=== PATIENT | male | born 1955 | race Caucasian/White ===

== ENCOUNTER 2024-03-09 06:56 | Day surgery (SDC) | payer MEDICARE, BC, SELFPAY ==
[2024-03-07 14:45] VITALS: BMI 23.6
--- NOTE | 2024-03-08 07:00 | EKG_ITS ---
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
[2024-03-08 11:20] LABS: Basophils # (Auto) 0.1 Thou/mm3 (0.0-0.2); Basophils % (Auto) 1 % (0-2.5); Eosinophils # (Auto) 0.3 Thou/mm3 (0.0-0.5); Eosinophils % (Auto) 3 % (0-10); Hematocrit 46.2 % (41.0-53.0); Hemoglobin 15.3 g/dL (13.5-16.0); Immature Granulocytes % (Auto) 1 % (0-0); Immature Granulocytes Auto 0.04 Thou/mm3 (0.00-0.00); Lymphocytes % (Auto) 35 % (10-50); Mean Corpuscular HGB Conc 33.1 g/dl (31.0-37.0); Mean Corpuscular Hemoglobin 31.4 pg (25.0-35.0); Mean Corpuscular Volume 95 fL (80-100); Monocytes # (Auto) 0.8 Thou/mm3 (0.0-0.8); Monocytes % (Auto) 9 % (0-12); Neutrophils # (Auto) 4.4 Thou/mm3 (1.8-7.7); Neutrophils % (Auto) 51 % (37-80); Nucleated Red Blood Cell % 0 /100 WBC (0); Platelet Count 233 Thou/mm3 (140-440); RDW Standard Deviation 52.7 fL (35.1-43.9); Red Blood Count 4.87 Miln/mm3 (4.50-5.90); White Blood Count 8.5 Thou/mm3 (3.8-10.6)
[2024-03-08 11:28] LABS: Partial Thromboplastin Time 26.5 Seconds (22.0-36.0); Prothrombin Time 11.4 Seconds (9.0-12.2)
[2024-03-08 11:37] LABS: Anion Gap 7 (7-16); BUN/Creatinine Ratio 19 Ratio (12-20); Blood Urea Nitrogen 28 mg/dL (9-23); Carbon Dioxide 23.1 mMol/L (20.0-31.0); Chloride 108 mMol/L (98-107); Creatinine (Component) 1.5 mg/dL (0.6-1.3); Estimated Creatinine Clearance 48.4 mL/min (>60); Glucose 105 mg/dL (74-106); Osmolality,Calculated 281 (275-295); Potassium 5.1 mMol/L (3.4-5.1); Sodium 138 mMol/L (136-145); eGFR 51 See Note
[2024-03-09] VITALS (16 sets, daily range): BP systolic 71–154; BP diastolic 52–91; PULSE 64–71; RESP 12–20; TEMP 36.6–36.8; O2SAT 97–100; BMI 24.2
--- NOTE | 2024-03-09 07:30 | CHAP ---
Patient expressed gratitude for prayer before his procedure.
--- NOTE | 2024-03-09 10:05 | ESOP_ITS ---
RE: JUSTUS ROCKWELL : 1955 DATE OF OPERATION: 03/09/2024 PROCEDURE PERFORMED: 1. Selective catheter placement in the aortic arch and aortic arch angiogram, CPT code 29573. 2. Selective catheterization of the right common carotid artery; right carotid and cerebral angiogram, CPT code 90020. 3. Selective catheter placement of the left common carotid artery; left carotid and cerebral angiogram. 4. Selective cannulation of left subclavian artery and left subclavian angiogram. 5. Iliofemoral angiogram. 6. Conscious sedation 30 minute duration. 7. Ultrasound-guided access, left femoral artery. DIAGNOSES: Subclavian stenosis and severe 90% stenosis of left internal carotid artery. HISTORY AND INDICATIONS: The patient is a 68-year-old male with a past medical history of coronary artery disease, status post myocardial infarction, stent placement, peripheral arterial disease, admitted recently to the hospital symptomatic subclavian stenosis, also was found to have left internal carotid artery stenosis _ 90% stenosis with 2.7 meter velocities, hence carotid and cerebral angiograms as well as left subclavian angiogram was recommended for further assessment to assess if he is a candidate for carotid intervention and subclavian intervention. DESCRIPTION OF PROCEDURE: The patient was brought to cardiac catheterization laboratory. He was given conscious sedation 1 mg Versed and 50 mcg of fentanyl for sedation. Left femoral artery was cannulated by ultrasound guidance and _ micropuncture technique was used and local anesthesia. A 5-Indonesian sheath was introduced. A 5-Indonesian pigtail catheter was advanced to the aortic arch. Aortic arch angiogram performed by digital subtraction angiogram. Subsequently, a Sutton 2, 5-Indonesian diagnostic catheters to cannulate the right common carotid artery, carotid and cerebral angiogram was performed. Left Sutton 2 diagnostic catheter was used to cannulate left common carotid artery, carotid and cerebral angiogram was performed. Subsequently, a Sutton 2 diagnostic catheter was used to cannulate the left subclavian artery, left subclavian angiogram was performed. Subsequently, iliofemoral angiogram performed and manual compression applied. The patient tolerated the procedure well. There were no complications. Aortic arch showed following findings. Aortic arch angiogram showed type B aortic arch. Calcification of the aortic arch with mild atherosclerotic plaque. No significant stenosis. Right innominate artery is normal. Right subclavian artery is normal. Right vertebral artery is normal. Origin of the common carotid artery is normal. Left common carotid artery is normal. Left subclavian artery showed severe stenosis. Selective carotid angiogram showed following findings. Right common carotid artery showed mild plaque, no significant stenosis. Right internal carotid artery is normal. Intracerebral angiogram showed right anterior middle cerebral artery is normal. No aneurysms or AV malformation. Left common carotid artery showed mild plaque, no significant stenosis. Left internal carotid artery showed 90% stenosis close to the bifurcation . Left external carotid artery showed moderate stenosis. Left anterior middle cerebral arteries appeared normal. Left subclavian artery showed evidence of a 75-80% stenosis, discrete 2 cm lesion. Subsequently, there is moderate disease distally as well. Left internal mammary artery and left vertebral arteries appeared normal. SUMMARY OF FINDINGS: 1. A 90% stenosis of left internal carotid artery, fairly high bifurcation. 2. Moderate to severe 80% stenosis, left subclavian artery. RECOMMENDATIONS: Continue medical management. We will discuss with vascular surgery consultation, possibly carotid stent placement versus endarterectomy because of high bifurcation he is a candidate for stent placement and also subclavian artery can be addressed later stent placement. The patient appears to be symptomatic and has subclavian steal syndrome. DT: 08:44:34 TT: 09:49:00 Ref: [id number] - TID: [id number] [facility]
--- NOTE | 2024-03-09 10:21 | PC.NURSE ---
0839 patient is awake, alert, breathing unlabored, s/p carotid angiogram via left groin, femoral sheat present to left groin, no bleeding or hematoma noted, ok to remove sheath now per RN Report. Report received from Kwasi MEYER, patient to recover for 4 hrs and continue home medications aspirin and plavix today. NIH stroke assessment completed, no s/s of stroke at this time. 0907 left femoral sheath removed, no bleeding or hematoma noted, manual pressure applied. 0922 manual pressure removed, no active bleeding or hematoma noted, sandbag applied. Pt refuse food tray at this time 1015 patient eating breakfast, no nausea or vomiting.
--- NOTE | 2024-03-09 11:15 | PC.NURSE ---
1115 sandbag removed from left groin, no bleeding or hematoma noted
--- NOTE | 2024-03-09 12:17 | PC.NURSE ---
patient is awake, alert, breathing unlabored, no bleeding or hematoma to left groin, vital signs stable, no signs of stroke at this time, Dr. Blum states ok to sit up patient and get patient ready to go home
--- NOTE | 2024-03-09 13:50 | PC.NURSE ---
1257 patient is awake, alert, breathing unlabored, dressing to left groin dry with no bleeding or hematoma, discharge instructions given to patient and , patient discharged home in wheelchair with all belongings. No s/s of stroke at this time.
== END 2024-03-09 12:57 | disposition home or self-care (01) ==
PROVIDERS: PCP Nurse Practitioner Family; Referring Provider Internal Medicine Cardiovascular Disease; Visit Provider Internal Medicine Cardiovascular Disease
PROC: (CPT 36224; principal; 2024-03-09 07:30)
DX: I65.22 Occlusion and stenosis of left carotid artery (principal); Z95.5 Presence of coronary angioplasty implant and graft; I70.8 Atherosclerosis of other arteries; I25.10 Atherosclerotic heart disease of native coronary artery without angina pectoris; I25.2 Old myocardial infarction; I73.9 Peripheral vascular disease, unspecified
CPT/HCPCS: 36200; 36223; G0278; 36415; 75625; 75710; 75820; 80048; 82810; 85025; 85347; 85610; 85730; 93005; 99152; 99153; A4649; C1751; C1769; C1894; J0171; J0461; J1643; J2250; J2310; J2371; J3010; J3490; Q9967; J1644; J2305

== ENCOUNTER → 2024-06-20 | Outpatient (CLI) | payer MEDICARE, BC, SELFPAY ==
[2024-06-20 12:54] LABS: Basophils # (Auto) 0.1 Thou/mm3 (0.0-0.2); Basophils % (Auto) 1 % (0-2.5); Eosinophils # (Auto) 0.2 Thou/mm3 (0.0-0.5); Eosinophils % (Auto) 2 % (0-10); Hematocrit 46.8 % (41.0-53.0); Hemoglobin 15.1 g/dL (13.5-16.0); Immature Granulocytes % (Auto) 0 % (0-0); Immature Granulocytes Auto 0.02 Thou/mm3 (0.00-0.00); Lymphocytes # (Auto) 3.5 Thou/mm3 (1.0-4.8); Lymphocytes % (Auto) 35 % (10-50); Mean Corpuscular HGB Conc 32.3 g/dl (31.0-37.0); Mean Corpuscular Hemoglobin 29.7 pg (25.0-35.0); Mean Corpuscular Volume 92 fL (80-100); Monocytes # (Auto) 0.7 Thou/mm3 (0.0-0.8); Monocytes % (Auto) 7 % (0-12); Neutrophils # (Auto) 5.5 Thou/mm3 (1.8-7.7); Neutrophils % (Auto) 55 % (37-80); Nucleated Red Blood Cell % 0 /100 WBC (0); Platelet Count 320 Thou/mm3 (140-440); RDW Standard Deviation 50.1 fL (35.1-43.9); Red Blood Count 5.08 Miln/mm3 (4.50-5.90)
[2024-06-20 13:02] LABS: INR 1.1 (0.9-1.3); Partial Thromboplastin Time 37.8 Seconds (22.0-36.0); Prothrombin Time 11.9 Seconds (9.0-12.2)
[2024-06-20 13:05] LABS: Alanine Aminotransferase 33 U/L (10-49); Albumin, Serum 4.5 gm/dL (3.4-4.8); Albumin/Globulin Ratio 1.7 (1.2-2.2); Alkaline Phosphatase 90 U/L (46-116); Anion Gap 9 (7-16); Aspartate Amino Transferase 16 U/L (0-34); BUN/Creatinine Ratio 18 Ratio (12-20); Bilirubin,Total 0.4 mg/dL (0.3-1.2); Blood Urea Nitrogen 24 mg/dL (9-23); Calcium 10.2 mg/dL (8.3-10.6); Calcium (Corrected) 10.2 mg/dL (8.5-10.1); Carbon Dioxide 24.7 mMol/L (20.0-31.0); Chloride 107 mMol/L (98-107); Creatinine (Component) 1.3 mg/dL (0.6-1.3); Globulin 2.7 gm/dL (2.3-3.5); Glucose 102 mg/dL (74-106); Osmolality,Calculated 285 (275-295); Sodium 141 mMol/L (136-145); Total Protein 7.2 gm/dL (5.7-8.2); eGFR > 60 See Note
== END | disposition home or self-care (01) ==
LOC: COPL 11:44
PROVIDERS: PCP Nurse Practitioner Family; Referring Provider Nurse Practitioner Family; Visit Provider Nurse Practitioner Family
DX: I50.9 Heart failure, unspecified (principal)
CPT/HCPCS: 36415; 80053; 85025; 85610; 85730

== ENCOUNTER → 2024-07-23 | Outpatient (CLI) | payer MEDICARE, BC, SELFPAY ==
[2024-07-23 14:33] LABS: Prostate Specific Antigen 1.75 ng/mL (0-4.00)
[2024-07-23 14:38] LABS: Cardiac Risk Estimate 3.8 RATIO (4.0-6.7); Cholesterol 139 mg/dL (132-200); HDL Cholesterol 37 mg/dL (40-60); LDL Cholesterol,Calculated 76 mg/dL (0-130); Thyroid Stimulating Hormone 2.09 uIU/mL (0.55-4.78); Triglycerides 128 mg/dL (30-150)
== END | disposition home or self-care (01) ==
LOC: COPL 13:19
PROVIDERS: PCP Nurse Practitioner Family; Referring Provider Nurse Practitioner Family; Visit Provider Nurse Practitioner Family
DX: E03.9 Hypothyroidism, unspecified (principal); E78.2 Mixed hyperlipidemia; N52.9 Male erectile dysfunction, unspecified
CPT/HCPCS: 36415; 80061; 84153; 84443

== ENCOUNTER → 2024-07-25 | Outpatient (CLI) | payer MEDICARE, BC, SELFPAY ==
[2024-07-30 06:48] LABS: Fecal Globin Result DETECTED (NOT DETECTED)
== END | disposition home or self-care (01) ==
LOC: SLDO 13:23
PROVIDERS: Referring Provider Nurse Practitioner Family; Visit Provider Nurse Practitioner Family
DX: N52.9 Male erectile dysfunction, unspecified (principal)
CPT/HCPCS: 82274; G0328

== ENCOUNTER → 2024-09-13 | Outpatient (CLI) | payer MEDICARE, BC, SELFPAY ==
[2024-09-13 12:09] LABS: Basophils # (Auto) 0.1 Thou/mm3 (0.0-0.2); Basophils % (Auto) 1 % (0-2.5); Eosinophils # (Auto) 0.3 Thou/mm3 (0.0-0.5); Eosinophils % (Auto) 2 % (0-10); Hematocrit 49.7 % (41.0-53.0); Hemoglobin 16.8 g/dL (13.5-16.0); Immature Granulocytes % (Auto) 0 % (0-0); Immature Granulocytes Auto 0.03 Thou/mm3 (0.00-0.00); Lymphocytes % (Auto) 37 % (10-50); Mean Corpuscular HGB Conc 33.8 g/dl (31.0-37.0); Mean Corpuscular Hemoglobin 30.4 pg (25.0-35.0); Mean Corpuscular Volume 90 fL (80-100); Monocytes # (Auto) 0.9 Thou/mm3 (0.0-0.8); Monocytes % (Auto) 8 % (0-12); Neutrophils # (Auto) 5.6 Thou/mm3 (1.8-7.7); Neutrophils % (Auto) 51 % (37-80); Nucleated Red Blood Cell % 0 /100 WBC (0); Platelet Count 255 Thou/mm3 (140-440); RDW Standard Deviation 49.2 fL (35.1-43.9); Red Blood Count 5.53 Miln/mm3 (4.50-5.90); White Blood Count 10.8 Thou/mm3 (3.8-10.6)
[2024-09-13 12:14] LABS: INR 1.1 (0.9-1.3); Partial Thromboplastin Time 32.5 Seconds (22.0-36.0); Prothrombin Time 11.5 Seconds (9.0-12.2)
[2024-09-13 12:27] LABS: Alanine Aminotransferase 25 U/L (10-49); Alkaline Phosphatase 73 U/L (46-116); Anion Gap 12 (7-16); Aspartate Amino Transferase 20 U/L (0-34); BUN/Creatinine Ratio 26 Ratio (12-20); Bilirubin,Total 0.6 mg/dL (0.3-1.2); Blood Urea Nitrogen 42 mg/dL (9-23); Calcium 9.6 mg/dL (8.3-10.6); Calcium (Corrected) 9.6 mg/dL (8.5-10.1); Carbon Dioxide 21.2 mMol/L (20.0-31.0); Chloride 109 mMol/L (98-107); Creatinine (Component) 1.6 mg/dL (0.6-1.3); Globulin 2.5 gm/dL (2.3-3.5); Glucose 111 mg/dL (74-106); Osmolality,Calculated 294 (275-295); Potassium 5.1 mMol/L (3.4-5.1); Sodium 142 mMol/L (136-145); Total Protein 7.5 gm/dL (5.7-8.2); eGFR 47 See Note
== END | disposition home or self-care (01) ==
LOC: COPL 11:27
PROVIDERS: PCP Family Medicine; Referring Provider Nurse Practitioner Family; Visit Provider Nurse Practitioner Family
DX: Z01.818 Encounter for other preprocedural examination (principal)
CPT/HCPCS: 36415; 80053; 85025; 85610; 85730

== ENCOUNTER 2024-10-12 07:50 | Day surgery (SDC) | payer MEDICARE, BC, SELFPAY ==
[2024-10-12] VITALS (12 sets, daily range): BP systolic 90–187; BP diastolic 69–103; PULSE 77–91; RESP 11–18; TEMP 36.4–36.8; O2SAT 94–99; BMI 22.1
[2024-10-12] MEDS: SODIUM CHLORIDE 0.9% 500 ML 500 ML 20 ML IV (09:48)
[2024-10-12] MEDS: DiphenhydrAMINE INJ 50 MG/ML VIAL 25 MG IVP (09:49)
[2024-10-12] MEDS: MIDAZOLAM INJ 1 MG/ML VIAL 2 ML (ASD USE ONLY) 2 MG IVP (10:05)
[2024-10-12] MEDS: fentaNYL CIT INJ 50 mCg/ML AMP 2ML (ASD USE ONLY) IVP (10:05)
[2024-10-12] MEDS: ONDANSETRON INJ 2 MG/ML INJ 2 ML 4 MG IVP (10:23)
--- NOTE | 2024-10-12 11:22 | SUR.PHASEII ---
1055 Pt more awake and alert. Denies pain or N/V. Abd remains soft. Pt passing flatus. Fidencio PO fluids. 1112 Pt assessment unchanged. No complaints. assisting with pt getting dressed. DC instructions given. Both state understanding. Pt meets dc criteria-to home.
== END 2024-10-12 11:12 | disposition home or self-care (01) ==
PROVIDERS: PCP Nurse Practitioner Family; Referring Provider Specialist; Visit Provider Specialist
PROC: 0DBE8ZX Excision of Large Intestine, Via Natural or Artificial Opening Endoscopic, Diagnostic (ICD-10-PCS; CPT 45380; principal; 2024-10-12 09:00)
DX: Z12.11 Encounter for screening for malignant neoplasm of colon (principal); D12.1 Benign neoplasm of appendix; K64.9 Unspecified hemorrhoids; K57.30 Diverticulosis of large intestine without perforation or abscess without bleeding
CPT/HCPCS: 45380; 45385; J1200; J2250; J2405; J3010; J7999

== ENCOUNTER 2024-11-13 10:12 | Day surgery (SDC) | payer MEDICARE, BC, SELFPAY ==
[2024-11-09 18:13] VITALS: BMI 22.8
--- NOTE | 2024-11-12 07:00 | EKG_ITS ---
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
[2024-11-12 10:36] LABS: Basophils # (Auto) 0.1 Thou/mm3 (0.0-0.2); Basophils % (Auto) 1 % (0-2.5); Eosinophils # (Auto) 0.4 Thou/mm3 (0.0-0.5); Eosinophils % (Auto) 4 % (0-10); Hematocrit 47.0 % (41.0-53.0); Hemoglobin 15.7 g/dL (13.5-16.0); Immature Granulocytes Auto 0.02 Thou/mm3 (0.00-0.00); Lymphocytes # (Auto) 3.0 Thou/mm3 (1.0-4.8); Lymphocytes % (Auto) 34 % (10-50); Mean Corpuscular HGB Conc 33.4 g/dl (31.0-37.0); Mean Corpuscular Hemoglobin 31.0 pg (25.0-35.0); Mean Corpuscular Volume 93 fL (80-100); Monocytes # (Auto) 0.8 Thou/mm3 (0.0-0.8); Monocytes % (Auto) 9 % (0-12); Neutrophils # (Auto) 4.6 Thou/mm3 (1.8-7.7); Neutrophils % (Auto) 52 % (37-80); Nucleated Red Blood Cell # 0.00 Thou/mm3 (0.00-0.00); Nucleated Red Blood Cell % 0 /100 WBC (0); Platelet Count 213 Thou/mm3 (140-440); RDW Standard Deviation 52.7 fL (35.1-43.9); Red Blood Count 5.06 Miln/mm3 (4.50-5.90); White Blood Count 8.8 Thou/mm3 (3.8-10.6)
[2024-11-12 10:43] LABS: Anion Gap 10 (7-16); BUN/Creatinine Ratio 17 Ratio (12-20); Blood Urea Nitrogen 30 mg/dL (9-23); Calcium 9.8 mg/dL (8.3-10.6); Carbon Dioxide 24.9 mMol/L (20.0-31.0); Chloride 105 mMol/L (98-107); Creatinine (Component) 1.8 mg/dL (0.6-1.3); Estimated Creatinine Clearance 39.6 mL/min (>60); Glucose 110 mg/dL (74-106); INR 1.0 (0.9-1.3); Osmolality,Calculated 286 (275-295); Partial Thromboplastin Time 30.3 Seconds (22.0-36.0); Potassium 5.3 mMol/L (3.4-5.1); Prothrombin Time 11.4 Seconds (9.0-12.2); Sodium 140 mMol/L (136-145); eGFR 41 See Note
[2024-11-13] VITALS (16 sets, daily range): BP systolic 82–166; BP diastolic 53–98; PULSE 66–84; RESP 12–19; TEMP 36.2–36.6; O2SAT 95–98
[2024-11-13] MEDS: SODIUM CHLORIDE 0.45 % 500 ML 125 ML IV (13:45)
[2024-11-13 16:59] LABS: ACT (CATH LAB ONLY) 353.0 Seconds (89-169)
--- NOTE | 2024-11-14 14:37 | ESOP_ITS ---
RE: JUSTUS ROCKWELL : 1955 DATE OF OPERATION: 11/13/2024 PROCEDURES PERFORMED: 1. Selective catheter placement of left common carotid artery, left common carotid and external carotid angiogram, CPT code 16690-ynmn. 2. Selective cannulation of left subclavian artery and left subclavian angiogram with vertebral and left subclavian angiogram, cannulation and interpretation, diagnostic procedures, CPT code 66033. 3. Percutaneous transluminal angioplasty followed by stent placement of the proximal left subclavian artery, placement of 7 mm x 26 mm length covered stent LifeStream, CPT code 59985. 4. Additional stent placement of left subclavian artery, placement of covered stent, LifeStream 7 x 37 mm covered stent in the left subclavian artery after the origin of vertebral artery, CPT code 80204. 5. Conscious sedation 1-hour duration. DIAGNOSES: Severe and critical stenosis left subclavian artery, symptomatic with subclavian steal syndrome and left arm pain and dizziness and history of carotid stent placement. HISTORY AND INDICATIONS: The patient is a 69-year-old male with a history of known CAD with stent placement for myocardial infarction, stent placement for LAD and also extensive carotid disease. The patient underwent carotid stent placement of the left internal carotid artery. He has been having episodes of lightheadedness, dizziness, and left arm numbness. Blood pressure differential 70 mmHg in the left arm also right arm and subclavian steal syndrome. Because symptomatic left subclavian stenosis, carotid angiogram, check the left carotid artery and proceed with subclavian stent placement depending on the findings of angiogram. DESCRIPTION OF PROCEDURE: The patient was brought to the cardiac catheterization laboratory where she was given 2 mg of Versed and 50 mcg of fentanyl for sedation. Left femoral approach was taken. Left femoral artery was cannulated by micropuncture technique and a 6-Ugandan sheath was introduced. Subsequently, using a NaviCross 035 angle catheter, able to cannulate the left common carotid artery, left carotid angiogram performed. Subsequently, NaviCross catheter was used to cannulate the left subclavian artery subclavian angiogram performed with digital subtraction method showed following findings. Left common carotid artery is normal. Left internal carotid artery showed a stent, which is widely patent with mild residual stenosis. External carotid artery was not visualized well. Procedure with a MOLD YARD WORKER and stent placed in the left subclavian artery. Left subclavian artery diagnostic angiogram showed following findings. Proximal subclavian artery 1 cm free of disease. There is 1.5-2 cm in the lesion with 90% stenosis of the proximal left subclavian artery before giving a vertebral artery. After the vertebral and mammary artery, there is a 95% stenosis, nearly subtotal occlusion with flow impairment of the left subclavian artery. Rest of the branches appeared normal. Vertebral artery appears to be nondominant and small. Following diagnostic procedure, the patient was given IV heparin 5000 units. ACT was found to be 350, proceed with a MOLD YARD WORKER and stent placement. A 0.018 Advantage stiff guidewire was used to cross the lesion successfully in the subclavian artery proximal segments and placed in the left brachial artery guidewire. With a guidewire support, a 90-cm destination sheath was advanced and placed in the left subclavian artery in the proximal segment. Percutaneous transluminal angioplasty was performed using 4 mm x 40 mm peripheral angioplasty balloon. Distal lesion as well as proximal lesion subclavian artery were both dilated successfully. Subsequently, stent placement was recommended. Distal lesion after the vertebral artery stent was stented first using a LifeStream covered stent by [employer]. A 7 x 37 mm covered stent by LifeStream was then deployed successfully with 8 atmospheric pressure. It was positioned just after vertebral artery and LIMON. After one inflation with excellent result, I proceeded with subsequent stent placement in the proximal subclavian artery a 7 x 26 mm LifeStream covered stent with PTFE coating was then placed in the proximal left subclavian artery. A 10 atmospheric pressure initially was used. Subsequently, 12 atmospheric pressure was used to dilate the stent successfully. Final angiogram showed widely patent left subclavian artery. No residual stenosis. SUMMARY OF FINDINGS: 1. Widely patent stent on the left common carotid artery. 2. Successful MOLD YARD WORKER, stent placement of the proximal left subclavian artery, placement of covered stent LifeStream, 7 x 26 mm stent. 3. Additional stent placement of the left subclavian artery procedure with placement of LifeStream 7 x 37 mm stent placement. COMPLICATIONS: None. Iliofemoral angiogram was performed and manual compression was applied. The patient was given 30 mg of protamine to reverse heparin. RECOMMENDATIONS: The patient will be continued on aspirin and Plavix. The patient is already on aspirin and Plavix because of CAD for the next 6 months. DT: 12:48:48 TT: 14:02:00 Ref: [id number] - TID: [id number]
== END 2024-11-13 19:25 | disposition home or self-care (01) ==
PROVIDERS: PCP Nurse Practitioner Family; Referring Provider Internal Medicine Cardiovascular Disease; Visit Provider Internal Medicine Cardiovascular Disease
PROC: (CPT 36222; principal; 2024-11-13 11:30)
DX: I25.10 Atherosclerotic heart disease of native coronary artery without angina pectoris (principal); I25.2 Old myocardial infarction; Z95.5 Presence of coronary angioplasty implant and graft; Z01.810 Encounter for preprocedural cardiovascular examination
CPT/HCPCS: 36222; 36225; 37236; 37237; 36415; 80048; 85025; 85347; 85610; 85730; 93005; 99152; 99153; A4649; A4699; C1725; C1769; C1874; C1887; C1894; J0461; J1643; J2250; J2310; J2371; J2720; J3010; J3490; J7030; Q9967

== ENCOUNTER → 2025-01-31 | Outpatient (CLI) | payer MEDICARE, BC, SELFPAY ==
[2025-01-31 16:25] LABS: Campylobacter PCR Negative (Negative); Salmonella Species PCR Negative (Negative); Shiga Toxin PCR Negative (Negative); Shigella Species PCR Negative (Negative)
[2025-02-06 13:51] LABS: Source STOOL
== END | disposition home or self-care (01) ==
LOC: SLDO 10:14
PROVIDERS: PCP Family Medicine; Referring Provider Nurse Practitioner Family; Visit Provider Nurse Practitioner Family
DX: R19.7 Diarrhea, unspecified (principal)
CPT/HCPCS: 87177; 87209